=== PATIENT | male | born 1950 | race Asian ===

== ENCOUNTER 2020-03-29 00:25 | Emergency (ER) | payer OTHER ==
[~2020-03-29] VITALS: Ht 170.2 cm; Wt 77.0 kg
--- NOTE | 2020-03-29 00:44 | NUR ---
Pt describes pain as originally in LLQ moved to suprapubic and now in left flank
--- NOTE | 2020-03-29 00:44 | NUR ---
Pt unable to urinate right now...given water
[2020-03-29] MEDS ORDERED: ketorolac trometh. 30mg/ml inj. IV ONE (01:00)
[2020-03-29] MEDS ORDERED: ondansetron/PF 4mg/2ml inj IV ONE (01:00)
[2020-03-29] MEDS ORDERED: morphine 4 MG/ML inj SYRINge IV PRN (01:00)
[2020-03-29] MEDS ORDERED: normal saline 1000ML IV soln IVB ONE (01:00)
--- NOTE | 2020-03-29 01:00 | NUR ---
[facility] FOR RIDE AND OR INFO CELL [phone], HOME [phone]
[2020-03-29 01:44] LABS: CLARITY,URINE CLEAR (Clear); COLOR,URINE YELLOW (Yellow); GLUCOSE, URINE NEGATIVE (Neg); KETONES,URINE 15 mg/dl (Neg); LEUKOCYTE ESTERASE ,URINE NEGATIVE (Neg); NITRITES, URINE NEGATIVE (Neg); OCCULT BLOOD,URINE SMALL (Neg); PROTEIN,URINE NEGATIVE (Neg); UROBILINOGEN,URINE 0.2 E.U/dL (0.2-1.0)
[2020-03-29 01:46] LABS: UA COLLECTION TYPE URINAL
[2020-03-29 02:01] LABS: ALANINE AMINOTRANSFERASE 18 U/L (12-78); ALBUMIN 3.5 G/DL (3.4-5.0); ALBUMIN/GLOBULIN RATIO 0.9 (1.1-1.5); ALKALINE PHOSPHATASE 74 IU/L (46-116); ANION GAP 8 (8-16); ASPARTATE AMINO TRANSFERASE 19 U/L (10-37); BLOOD UREA NITROGEN 17 MG/DL (7-18); BUN/CREATININE RATIO 11.3 (5.4-32.0); CALCIUM 8.4 MG/DL (8.5-10.1); CHLORIDE 101 MMOL/L (99-107); GLUCOSE 122 MG/DL (70-104); LIPASE < 50 U/L (73-393); POTASSIUM 3.5 MMOL/L (3.5-5.1); SODIUM 136 MMOL/L (135-145); TOTAL CARBON DIOXIDE 27.5 MMOL/L (24-32); TOTAL PROTEIN 7.6 G/DL (6.4-8.2); eGFR 47 ML/MIN
[2020-03-29] MEDS ORDERED: ONDA4TAB6 PO (02:02)
[2020-03-29] MEDS ORDERED: TADA20TA PO (02:02)
[2020-03-29] MEDS ORDERED: KETO10TA2 PO (02:02)
[2020-03-29] MEDS ORDERED: HYDR-4353 PO (02:02)
[2020-03-29 02:09] LABS: BASOPHILS % (AUTO) 0.2 % (0-1); EOSINOPHILS % (AUTO) 0.1 % (0-6); HEMOGLOBIN 14.4 g/dl (14.0-17.9); LYMPHOCYTES # (AUTO) 0.7 X10'3 (1.1-4.8); MEAN CORPUSCULAR HEMOGLOBIN 30.4 PG (27.0-31.0); MEAN CORPUSCULAR HGB CONC 33.5 g/dL (33.0-36.5); MEAN CORPUSCULAR VOLUME 90.5 FL (78-98); MEAN PLATELET VOLUME 7.1 FL (7.4-10.4); MONOCYTES # (AUTO) 1.1 X10'3 (0-0.9); MONOCYTES % (AUTO) 8.5 % (2-12); NEUTROPHILS # (AUTO) 11.4 X10'3 (1.8-7.7); NEUTROPHILS % (AUTO) 86.2 % (42-75); PLATELET COUNT 325 X10'3 (140-440); RED BLOOD COUNT 4.75 X10'6 (4.70-6.10); RED CELL DISTRIBUTION WIDTH 13.6 % (11.5-14.5); WHITE BLOOD COUNT 13.3 X10'3 (4.5-11.0)
[2020-03-29 02:18] LABS: BACTERIA,URINE NONE SEEN /HPF (Neg); WBC,URINE NONE SEEN /HPF (0-4)
[2020-03-29 02:19] LABS: MUCUS STRANDS NONE SEEN /LPF (Neg); SQUAMOUS EPITHELIAL CELL,UR NONE SEEN /LPF (FEW)
[2020-03-29 02:33] VITALS: BP 152/86
== END 2020-03-29 02:35 | disposition home or self-care (01) ==
LOC: ER 00:26
DX: N20.0 Calculus of kidney (principal); N13.30 Unspecified hydronephrosis; R10.32 Left lower quadrant pain; R33.9 Retention of urine, unspecified; M10.9 Gout, unspecified; Z98.890 Other specified postprocedural states; Z79.899 Other long term (current) drug therapy
CPT/HCPCS: 36415; 74176; 80053; 81001; 83690; 85025; 96374; 96375; 99284; J1885; J2270; J2405; J7030

== ENCOUNTER 2021-10-26 10:48 | Emergency (ER) | payer MEDICARE ==
[~2021-10-26] VITALS: Ht 172.7 cm; Wt 84.1 kg
[~2021-10-26 10:48] MED LIST: KETO10TA2 PO; ONDA4TAB6 PO; TADA20TA PO
[2021-10-26] MEDS ORDERED: morphine 4 MG/ML inj SYRINge IV ONE (11:50)
[2021-10-26] MEDS ORDERED: normal saline 1000ML IV soln IVB ONE (11:50)
--- NOTE | 2021-10-26 12:07 | NUR ---
ASSEMBLER SKYLIGHTS AT BEDSIDE.
[2021-10-26 12:20] LABS: BASOPHILS % (AUTO) 0.3 % (0-1); EOSINOPHILS # (AUTO) 0.1 X10'3 (0-0.9); EOSINOPHILS % (AUTO) 1.1 % (0-6); HEMATOCRIT 39.8 % (42.0-52.0); HEMOGLOBIN 13.5 g/dl (14.0-17.9); LYMPHOCYTES # (AUTO) 0.7 X10'3 (1.1-4.8); LYMPHOCYTES % (AUTO) 8.1 % (21-51); MEAN CORPUSCULAR HEMOGLOBIN 30.9 PG (27.0-31.0); MEAN CORPUSCULAR VOLUME 91.1 FL (78-98); MEAN PLATELET VOLUME 6.6 FL (7.4-10.4); MONOCYTES # (AUTO) 0.7 X10'3 (0-0.9); MONOCYTES % (AUTO) 8.4 % (2-12); NEUTROPHILS # (AUTO) 6.6 X10'3 (1.8-7.7); NEUTROPHILS % (AUTO) 82.1 % (42-75); PLATELET COUNT 542 X10'3 (140-440); RED BLOOD COUNT 4.36 X10'6 (4.70-6.10); RED CELL DISTRIBUTION WIDTH 13.4 % (11.5-14.5); WHITE BLOOD COUNT 8.1 X10'3 (4.5-11.0)
[2021-10-26 12:25] LABS: ALANINE AMINOTRANSFERASE 25 U/L (12-78); ALBUMIN 3.3 G/DL (3.4-5.0); ALBUMIN/GLOBULIN RATIO 0.8 (1.1-1.5); ALKALINE PHOSPHATASE 86 IU/L (46-116); ANION GAP 3 (8-16); ASPARTATE AMINO TRANSFERASE 16 U/L (10-37); BILIRUBIN,TOTAL 0.6 MG/DL (0.1-1.0); BLOOD UREA NITROGEN 11 MG/DL (7-18); BUN/CREATININE RATIO 9.8 (5.4-32.0); C-REACTIVE PROTEIN 7.77 MG/DL (0.0-0.5); CALCIUM 8.9 MG/DL (8.5-10.1); CHLORIDE 100 MMOL/L (99-107); CREATININE 1.12 MG/DL (0.60-1.10); GLUCOSE 104 MG/DL (70-104); POTASSIUM 3.8 MMOL/L (3.5-5.1); SODIUM 131 MMOL/L (135-145); TOTAL CARBON DIOXIDE 28.5 MMOL/L (24-32); TOTAL PROTEIN 7.7 G/DL (6.4-8.2); eGFR 65 ML/MIN
[2021-10-26] MEDS ORDERED: GABA100C PO (13:41)
[2021-10-26] MEDS ORDERED: CELE-193 PO (13:41)
[2021-10-26] MEDS ORDERED: CEPH-585 PO (13:41)
[2021-10-26 13:45] VITALS: BP 128/69
== END 2021-10-26 14:37 | disposition home or self-care (01) ==
LOC: ER 10:49
DX: M25.572 Pain in left ankle and joints of left foot (principal); M79.661 Pain in right lower leg; R61 Generalized hyperhidrosis; R11.12 Projectile vomiting; R60.0 Localized edema; M19.90 Unspecified osteoarthritis, unspecified site; M81.0 Age-related osteoporosis without current pathological fracture; Z79.2 Long term (current) use of antibiotics; Z79.899 Other long term (current) drug therapy
CPT/HCPCS: 29515; 36415; 73600; 80053; 85025; 85651; 86140; 93971; 96361; 96374; 99285; J2270; J7030

== ENCOUNTER 2023-09-08 13:47 | Emergency (ER) | payer MEDICARE ==
[~2023-09-08] VITALS: Ht 172.7 cm; Wt 16.0 kg
[~2023-09-08 13:47] MED LIST changes: +GABA100C PO
[2023-09-08 14:39] LABS: BASOPHILS % (AUTO) 0.5 % (0-1); EOSINOPHILS # (AUTO) 0.2 X10'3 (0-0.9); EOSINOPHILS % (AUTO) 2.3 % (0-6); HEMATOCRIT 44.3 % (42.0-52.0); HEMOGLOBIN 14.6 g/dl (14.0-17.9); LYMPHOCYTES # (AUTO) 1.5 X10'3 (1.1-4.8); LYMPHOCYTES % (AUTO) 20.5 % (21-51); MEAN CORPUSCULAR HGB CONC 32.9 g/dL (33.0-36.5); MEAN CORPUSCULAR VOLUME 91.3 FL (78-98); MEAN PLATELET VOLUME 6.5 FL (7.4-10.4); MONOCYTES # (AUTO) 0.5 X10'3 (0-0.9); MONOCYTES % (AUTO) 6.5 % (2-12); NEUTROPHILS # (AUTO) 5.2 X10'3 (1.8-7.7); NEUTROPHILS % (AUTO) 70.2 % (42-75); PLATELET COUNT 326 X10'3 (140-440); RED BLOOD COUNT 4.86 X10'6 (4.70-6.10); RED CELL DISTRIBUTION WIDTH 14.1 % (11.5-14.5); WHITE BLOOD COUNT 7.4 X10'3 (4.5-11.0)
[2023-09-08 14:46] LABS: ALANINE AMINOTRANSFERASE 30 U/L (12-78); ALBUMIN 3.9 G/DL (3.4-5.0); ALBUMIN/GLOBULIN RATIO 1.2 (1.1-1.5); ALKALINE PHOSPHATASE 97 IU/L (46-116); ANION GAP 9 (8-16); ASPARTATE AMINO TRANSFERASE 20 U/L (10-37); BILIRUBIN,TOTAL 0.7 MG/DL (0.1-1.0); BLOOD UREA NITROGEN 15 MG/DL (7-18); BUN/CREATININE RATIO 13.9 (10.0-20.0); CALCIUM 8.4 MG/DL (8.5-10.1); CHLORIDE 104 MMOL/L (99-107); CREATININE 1.08 MG/DL (0.60-1.10); GLUCOSE 126 MG/DL (70-104); LIPASE 21 U/L (16-77); SODIUM 139 MMOL/L (135-145); TOTAL CARBON DIOXIDE 26.1 MMOL/L (24-32); TOTAL PROTEIN 7.1 G/DL (6.4-8.2); eCRCL 14 ML/MIN; eGFR 67 ML/MIN
[2023-09-08 14:51] LABS: POTASSIUM 2.9 MMOL/L (3.5-5.1)
[2023-09-08] MEDS ORDERED: ketorolac trometh. 30mg/ml inj. IM ONE (16:10)
[2023-09-08] MEDS ORDERED: normal saline 1000ML IV soln IVB ONE (16:30)
[2023-09-08] MEDS ORDERED: HYDROmorphone 1 mg/ml syringe IV ONE (16:30)
[2023-09-08] MEDS ORDERED: ondansetron/PF 4mg/2ml inj IV ONE (16:30)
[2023-09-08] MEDS ORDERED: POTASSIUM BICARB 20meq eff tab 20 MEQ TABLET.EFF PO SCH (17:30)
[2023-09-08] MEDS ORDERED: HYDR-3965 PO ×3 (18:45→18:55)
[2023-09-08 19:33] VITALS: BP 138/86; PULSE 92; RESP 16; TEMP 98.3; O2SAT 93
== END 2023-09-08 19:34 | disposition home or self-care (01) ==
LOC: ER 13:47
DX: N20.0 Calculus of kidney (principal)
CPT/HCPCS: 36415; 74176; 80053; 83690; 85025; 96361; 96372; 96374; 96375; 99285; J1170; J1885; J2405; J7030